=== PATIENT | male | born 1950 | race Caucasian/White ===

== ENCOUNTER → 2016-06-02 | Outpatient (CLI) | payer OTHER | LOC: SBRMNEURO 22:01 | PROVIDERS: ATTEND Psychiatry & Neurology Sleep Medicine | DX: G47.33 Obstructive sleep apnea (adult) (pediatric) (principal) ==

== ENCOUNTER 2017-09-04 10:37 | Day surgery (SDC) | payer OTHER ==
[2017-09-04] MEDS ORDERED: LIDOCAINE 1% 2 ML INJ ID PRN (10:59)
[2017-09-04] MEDS ORDERED: LR 1,000 ML IV ONE (10:59)
--- NOTE | 2017-09-04 11:43 | PDANEPAE ---
ANE History of Present Illness blood in stool ANE Past Medical History - Cardiovascular History Hx Hypertension: No Hx Arrhythmias: No Hx Chest Pain: No Hx Coronary Artery / Peripheral Vascular Disease: No Hx CHF / Valvular Disease: No Hx Palpitations: No - Pulmonary History Hx COPD: No Hx Asthma/Reactive Airway Disease: No Hx Recent Upper Respiratory Infection: No Hx Oxygen in Use at Home: No Hx Sleep Apnea: Yes Sleep Apnea Screening Result - Last Documented: Positive Pulmonary History Comment: POS SLEEP APNEA - DOES NOT USE CPAP - Neurologic History Hx Cerebrovascular Accident: No Hx Seizures: No Hx Dementia: No - Endocrine History Hx Diabetes: Yes Hypothyroid: Yes Endocrine History Comment: HYPOTHYROID - Renal History Hx Renal Disorders: No - Liver History Hx Hepatic Disorders: No - Neurological & Psychiatric Hx Hx Neurological and Psychiatric Disorders: No - Cancer History Hx Cancer: No - Congenital Disorder History Hx Congenital Disorders: No - GI History Hx Gastrointestinal Disorders: No Gastrointestinal History Comment: BLOOD IN STOOL - Other Health History Other Health History: NEG - Chronic Pain History Chronic Pain: Yes (PINCHED NERVE NECK, LOWER BACK) - Surgical History Prior Surgeries: HERNIA REPAIR. PILONIDAL CYST ANE Review of Systems Review of systems is: negative Review of Systems: - Exercise capacity Exercise capacity: >=4 METS METS (RN): 4 METS ANE Patient History - Allergies Allergies/Adverse Reactions: No Known Allergies Allergy (Verified 07/08/15 12:10) - Home Medications Home Medications: Fexofenadine HCl 08/20/17 [Last Taken 09/03/17] Herbals/Supplements -Info Only 08/20/17 [Last Taken 09/03/17] Levothyroxine 08/20/17 [Last Taken 09/03/17] - NPO status NPO Status: no food or drink >8 hours NPO Since - Liquids (Date): 09/04/17 NPO Since - Liquids (Time): 02:30 NPO Since - Solids (Date): 09/03/17 NPO Since - Solids (Time): 08:00 - Anes Hx Anes Hx: no prior problems - Smoking Hx Smoking Status: Never smoked - Alcohol Use Alcohol Use: Occasionally - Family Anes Hx Family Anes Hx: none Family Hx Anesthesia Complications: NEG ANE Labs/Vital Signs - Vital Signs Vital Signs: reviewed preoperatively; see RN documention for details Blood Pressure: 125/82 Heart Rate: 61 Respiratory Rate: 15 O2 Sat (%): 95 Height: 162.56 cm Weight: 79.379 kg ANE Physical Exam - Airway Neck exam: FROM Mallampati Score: Class 2 - Pulmonary Pulmonary: no respiratory distress - Cardiovascular Cardiovascular: regular rate and rhythym - ASA Status ASA Status: II ANE Anesthesia Plan Anesthesia Plan: MAC
[2017-09-04] MEDS ORDERED: LIDOCAINE 2% 5 ML SDV ONE (11:47)
[2017-09-04] MEDS ORDERED: PROPOFOL/EMULSION 500 MG/50 ML BOTTLE IV ONE (11:47)
--- NOTE | 2017-09-04 11:55 | PDGENHP ---
History & Physical Chief Complaint: Blood in stool History of Present Illness: Positive stool for occult blood. Needs diagnostic colonoscopy. Patient is asymptomatic and without notable bleeding in the stool and with normal bowel movements. No abdominal pain. Pertinent Past, Social, Family History: Sleep apnea. No FH of colon cancer or polyps. Rare ETOH. No tobacco Relevant Physical Exam: NAD. CTA B/L. RRR without m/r/g. GI soft. NABS. No HSM. No TTP, No R/G Cardiorespiratory Assessment: ASA II. Colonoscopy with MAC (patient with history of intolerance to conscious sedation)
[2017-09-04] MEDS ORDERED: ALBUTEROL 3 ML DEYVIAL IH PRN (12:24)
[2017-09-04] MEDS ORDERED: ACETAMINOPHEN 500 MG TAB PO PRN (12:24)
[2017-09-04] MEDS ORDERED: ONDANSETRON 4 MG/2 ML VIAL IVP PRN (12:24)
[2017-09-04] MEDS ORDERED: fentaNYL 100 MCG/2 ML INJ IVP PRN (12:24)
[2017-09-04] MEDS ORDERED: NALOXONE HCL 0.4 MG/ML INJ IVP PRN (12:24)
--- NOTE | 2017-09-04 12:25 | POSTANESTH ---
Post Anesthetic Evaluation Cardiovascular Status: Normal, Stable Respiratory Status: Normal, Stable Level of Consciousness/Mental Status: Can Participate in Eval Pain Control: Adequate, Prn Tx Ordered Nausea/Vomiting Control: Adequate, Prn Tx Ordered Complications Possibly Related to Anesthesia: None Noted
[2017-09-04 13:54] VITALS: BP 109/82
--- NOTE | 2017-09-04 14:04 | GIREPORT ---
[facility] Surgical Services - Endoscopy Department Patient Name: Yoseph Hernandez Procedure Date: 09/04/2017 11:24 AM Patient Type: Outpatient Attending / ER Physician: David Rios MD Procedure: Colonoscopy Indications: Heme positive stool Providers: David Rios MD Medicines: Propofol per Anesthesia Complications: No immediate complications. Description of Procedure: After obtaining informed consent, the scope was passed under direct vis ion. Throughout the procedure, the patient's blood pressure, pulse, and oxyg en saturations were monitored continuously. The Colonoscope was introduced through the anus and advanced to the cecum, identified by appendiceal orifice and ileocecal valve. The colonoscopy was performed without difficulty. The patient tolerated the procedure well. The quality of th e bowel preparation was excellent. The ileocecal valve, appendiceal orifi ce, and rectum were photographed. Findings: The perianal and digital rectal examinations were normal. Pertinent negatives include normal sphincter tone, no palpable rectal lesions and normal prostate (size, shape, and consistency). A 6 mm polyp was found in the hepatic flexure. The polyp was sessile. T he polyp was removed with a cold biopsy forceps. Resection and retrieval w ere complete. A few small-mouthed diverticula were found in the sigmoid colon and ascending colon. A 14 mm polyp was found in the rectum. The polyp was semi-sessile. The polyp was removed with a hot snare. Resection and retrieval were complete. A 8 mm polyp was found in the rectum. The polyp was sessile. The polyp was removed with a cold snare. Resection and retrieval were complete. External and internal hemorrhoids were found during retroflexion. The hemorrhoids were small. Estimated Blood Loss: Estimated blood loss: none. Post Op Diagnosis: - One 6 mm polyp at the hepatic flexure, removed with a cold biopsy for ceps. Resected and retrieved. - Diverticulosis in the sigmoid colon and in the ascending colon. - One 14 mm polyp in the rectum, removed with a hot snare. Resected and retrieved. - One 8 mm polyp in the rectum, removed with a cold snare. Resected and retrieved. - External and internal hemorrhoids. Recommendation: - Await pathology results. - Repeat colonoscopy in 3 years for surveillance. - No aspirin, ibuprofen, naproxen, or other non-steroidal anti-inflamma tory drugs for 10 days after polyp removal. - Resume previous diet. - Continue present medications. - Patient has a contact number available for emergencies. The signs and symptoms of potential delayed complications were discussed with the pat ient. Return to normal activities tomorrow. Written discharge instructions we re provided to the patient. - Thank you for allowing me to be involved in the care of your patient. Attending Participation: I personally performed the entire procedure without the assistance of a fellow, resident or surg ical assistant prosecuting attorney. David Rios MD David Rios MD 09/04/2017 2:04:16 PM This report has been signed electronicallyDavid MD Gabriel Number of Addenda: 0 Note Initiated On: 09/04/2017 11:24 AM Total Procedure Duration Time 0 hours 20 minutes 34 seconds [email or web address]
== END 2017-09-04 13:48 | disposition home or self-care (01) ==
LOC: FSGY 10:37
PROVIDERS: ATTEND Internal Medicine Gastroenterology
PROC: 0DBL8ZX Excision of Transverse Colon, Via Natural or Artificial Opening Endoscopic, Diagnostic (ICD-10-PCS; principal; 2017-09-04 12:00)
DX: D12.3 Benign neoplasm of transverse colon (principal); D12.8 Benign neoplasm of rectum; E03.9 Hypothyroidism, unspecified; G47.39 Other sleep apnea; G89.29 Other chronic pain
CPT/HCPCS: J2704

== ENCOUNTER 2018-06-23 06:02 | Emergency (ER) | payer OTHER ==
[2018-06-23] MEDS ORDERED: NS 1,000 ML IV ONE (06:37)
[2018-06-23] MEDS ORDERED: MECLIZINE HCL 25 MG TAB PO ONE (06:37)
[2018-06-23] MEDS ORDERED: ONDANSETRON 4 MG/2 ML VIAL IVP ONE (06:37)
--- NOTE | 2018-06-23 06:45 | EDPHY ---
H & P Stated Complaint: DIZZINESS WHILE LAYING IN BED, NAUSEA, ONGOING NECK PAIN 1 MONTH Source: Patient Exam Limitations: No limitations - Personal History Current Tetanus/Diphtheria Vaccine: Yes Current Tetanus Diphtheria and Acellular Pertussis (TDAP): Yes - Medical/Surgical History Hx Asthma: No Hx Chronic Respiratory Disease: No Hx Diabetes: No Hx Cardiac Disease: No Hx Renal Disease: No Hx Cirrhosis: No Hx Alcoholism: No Hx HIV/AIDS: No Hx Splenectomy or Spleen Trauma: No Other PMH: HERNIA, CYSTS, HYPOTHYROIDISM - Social History Smoking Status: Never smoked Time Seen by Provider: 06/23/18 06:13 HPI/ROS: HPI The patient presents with dizziness and nausea. The patient awoke at 4:30 a.m. From sleep. He turned onto his right side and noticed that he felt dizzy which he describes as a lightheaded sensation, like his equilibrium was off. He then lay flat and turned to the left and noticed the same set of symptoms. He tested this several times and symptoms recurred each time he turned his body to either side. He stood up and got out of bed and his symptoms improved. He tried to sit in a recliner but he noticed that this provoked his symptoms as well. He then developed some nausea without any vomiting. When he is standing , walking he has no difficulty and feels fine. It is only when he is reclining and lying on his side that his symptoms happen. He has had no prior history of this in the past. He does not have a headache, vision changes, ringing in his ears, decreased hearing. He is not on any new medications. 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 He is currently have any in an exacerbation of this pain. He denies any numbness or tingling of his arms or legs. REVIEW OF SYSTEMS 10 systems were reviewed and negative with the exception of the elements mentioned in the history of present illness. 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 PHYSICAL General Appearance: Alert, no distress Eyes: Pupils equal and round no pallor or injection ENT, Mouth: Mucous membranes moist Respiratory: There are no retractions, lungs are clear to auscultation Cardiovascular: Regular rate and rhythm Gastrointestinal: Abdomen is soft and non-tender, no masses, bowel sounds normal Neurological: A&O x3, cranial nerves 2-12 intact, no nystagmus, no pronator drift, normal finger to nose testing, no Romberg, able to tandem gait without difficulty Skin: Warm and dry, no rashes Musculoskeletal: Neck is supple non tender Extremities: symmetrical, full range of motion Psychiatric: Patient is oriented X 3, there is no agitation (Riguzzi,Radha) Constitutional: Initial Vital Signs Temperature (C) 36.6 C 06/23/18 06:06 Heart Rate 62 06/23/18 06:06 Respiratory Rate 18 06/23/18 06:06 Blood Pressure 155/103 H 06/23/18 06:06 O2 Sat (%) 93 06/23/18 06:06 O2 Delivery Mode Room Air Allergies/Adverse Reactions: No Known Allergies Allergy (Verified 06/23/18 06:08) Home Medications: Medication Instructions Recorded Herbals/Supplements -Info Only 08/20/17 Levothyroxine 08/20/17 Meclizine HCl [Meclizine HCl 25 mg 25 mg PO Q6H PRN #20 tab 06/23/18 (RX,OTC)] Ondansetron Odt [Zofran Odt 4 mg 4 mg PO Q4 PRN #10 tab 06/23/18 (*)] Medical Decision Making - Diagnostics Imaging Results: Imaging Impressions Head CT 06/23/18 06:37 Impression: Normal CT scan of the head. The study was performed as an emergency on-call case and a preliminary report was conveyed to the Emergency Department by [facility]. The final interpretation is concordant with the original communication. Differential Diagnosis: 68-year-old man who is relatively healthy with chronic neck pain and hypothyroidism presents from home with positional dizziness associated with nausea, new onset since about 4:30 a.m. This morning. Here, he is slightly hypertensive, otherwise vital signs are normal. He has a normal neurologic evaluation with no cerebellar findings. His symptoms are provoked when he lies on his side in a flat bed. This occurs both facing the left and the right. He is unable to tolerate being in this position for more than about 1 sec so I am unable to assess for directional nystagmus. I am reassured given that his symptoms are oppositional that this is peripheral vertigo, most likely BPPV. I would also consider labyrinthitis. I believe cerebellar infarct or bleed is unlikely though a consideration. Plan for treatment here with IV fluids, Zofran, meclizine. I will check basic labs as well as CT scan of head. The case will be signed out to the oncoming provider Dr. Villasenor. (Radha Montero) Other Provider: Care assumed at 7:00 a.m. With plan for noncontrast head CT, symptomatic treatment, re-evaluation of this patient with likely peripheral acute vertigo. Plan is for discharge if head CT and labs negative, and some symptomatic improvement with therapy. 843: Patient re-evaluated. Negative head CT report reviewed on [facility], and he is able to walk back and forth to the bathroom. Not ataxic, looks well. Discharge as per Dr. Montero plan. On interviewing him he does say that his symptoms are positional and associated with nausea, and we really reproduce the symptoms in the emergency department by having him lie down and turn from his side to his back, he said the ceiling was moving a little bit. This would be more consistent with peripheral vertigo. 913: 12-lead EKG interpreted by me; official reading is in computer system. My interpretation is sinus rhythm with borderline left axis rate 54. I think that malignant dysrhythmia would be unlikely. (Arturo Villasenor) - Data Points Laboratory Results: Laboratory Results 06/23/18 06:55 06/23/18 06:55 06/23/18 06/23/18 06:55 06:55 WBC 6.21 10^3/uL 10^3/uL (3.80-9.50) RBC 5.40 10^6/uL 10^6/uL (4.40-6.38) Hgb 15.9 g/dL g/dL (13.7-17.5) Hct 47.7 % % (40.0-51.0) MCV 88.3 fL fL (81.5-99.8) MCH 29.4 pg pg (27.9-34.1) MCHC 33.3 g/dL g/dL (32.4-36.7) RDW 12.6 % % (11.5-15.2) Plt Count 218 10^3/uL 10^3/uL (150-400) MPV 9.8 fL fL (8.7-11.7) Neut % (Auto) 61.6 % % (39.3-74.2) Lymph % (Auto) 25.6 % % (15.0-45.0) [place] % (Auto) 9.2 % % (4.5-13.0) Eos % (Auto) 1.8 % % (0.6-7.6) Baso % (Auto) 1.3 % % (0.3-1.7) Nucleat RBC Rel Count 0.0 % % (0.0-0.2) Absolute Neuts (auto) 3.83 10^3/uL 10^3/uL (1.70-6.50) Absolute Lymphs (auto) 1.59 10^3/uL 10^3/uL (1.00-3.00) Absolute Monos (auto) 0.57 10^3/uL 10^3/uL (0.30-0.80) Absolute Eos (auto) 0.11 10^3/uL 10^3/uL (0.03-0.40) Absolute Basos (auto) 0.08 10^3/uL 10^3/uL (0.02-0.10) Absolute Nucleated RBC 0.00 10^3/uL 10^3/uL (0-0.01) Immature Gran % 0.5 % % (0.0-1.1) Immature Gran # 0.03 10^3/uL 10^3/uL (0.00-0.10) Sodium 137 mEq/L mEq/L (135-145) Potassium 4.4 mEq/L mEq/L (3.5-5.2) Chloride 105 mEq/L mEq/L (97-110) Carbon Dioxide 24 mEq/l mEq/l (22-31) Anion Gap 8 mEq/L mEq/L (6-14) BUN 16 mg/dL mg/dL (7-23) Creatinine 0.9 mg/dL mg/dL (0.7-1.3) Estimated GFR > 60 Glucose 103 mg/dL H mg/dL (70-100) Calcium 9.7 mg/dL mg/dL (8.5-10.4) Medications Given: Discontinued Medications Sodium Chloride (Ns) 1,000 mls @ 0 mls/hr IV EDNOW ONE; Wide Open PRN Reason: Protocol Stop: 06/23/18 06:38 Last Admin: 06/23/18 06:50 Dose: 1,000 mls Meclizine HCl (Meclizine Hcl) 25 mg PO EDNOW ONE Stop: 06/23/18 06:38 Last Admin: 06/23/18 06:50 Dose: 25 mg Ondansetron HCl (Zofran) 4 mg IVP EDNOW ONE Stop: 06/23/18 06:38 Last Admin: 06/23/18 06:50 Dose: 4 mg Departure - Departure Disposition: Home, Routine, Self-Care Clinical Impression: Vertigo, Nausea Condition: Good Instructions: Vertigo (ED) Additional Instructions: Please make sure to drink plenty of fluids. You should return to the emergency department if your worse in any way. Referrals: Marii Cao [Primary Care Provider] - As per Instructions Prescriptions: Meclizine HCl [Meclizine HCl 25 mg (RX,OTC)] 25 mg PO Q6H PRN #20 tab PRN Reason: Dizziness Ondansetron Odt [Zofran Odt 4 mg (*)] 4 mg PO Q4 PRN #10 tab PRN Reason: Nausea/Vomiting, Can'T Take Po
[2018-06-23 07:17] LABS: PLATELET COUNT 218 10^3/uL (150-400)
--- NOTE | 2018-06-23 09:05 | CPEKG ---
Test Reason : OPEN Blood Pressure : / mmHG Vent. Rate : 054 BPM Atrial Rate : 054 BPM P-R Int : 158 ms QRS Dur : 098 ms QT Int : 432 ms P-R-T Axes : 015 -17 019 degrees QTc Int : 410 ms Sinus rhythm Borderline left axis deviation Confirmed by Ruth Pierre ([id number]) on 06/23/2018 9:05:02 AM Referred By: RUTH PIERRE Confirmed By:Ruth Pierre
[2018-06-23 09:11] VITALS: BP 140/92
== END 2018-06-23 09:10 | disposition home or self-care (01) ==
DX: R42 Dizziness and giddiness (principal); E86.9 Volume depletion, unspecified; E03.9 Hypothyroidism, unspecified
CPT/HCPCS: 96374; J2405

== ENCOUNTER → 2018-09-12 | Outpatient (CLI) | payer OTHER | LOC: BHFA 16:00 | PROVIDERS: ATTEND Internal Medicine Cardiovascular Disease | DX: R55 Syncope and collapse (principal) ==

== ENCOUNTER → 2018-09-16 | Outpatient (CLI) | payer OTHER | LOC: BHFA 14:30 | PROVIDERS: ATTEND Internal Medicine Cardiovascular Disease | DX: R42 Dizziness and giddiness (principal); R55 Syncope and collapse ==